=== PATIENT | female | born 2000 | race Caucasian/White ===

== ENCOUNTER 2021-01-26 07:30 | Outpatient (CLI) | payer OTHER, SELFPAY ==
--- NOTE | ~2021-01-26 | US_ITS ---
EXAMINATION: US soft tissue UE LT DATE: 01/26/2021 07:49 INDICATION: Localized swelling, mass or lump at the anterior base of the left third digit TECHNIQUE: Multiple grayscale and Doppler ultrasound images of the region of concern at the base of t he left third digit were obtained. COMPARISON: Radiographs dated 01/17/2021 FINDINGS: There is a 4 x 3 x 2 mm anechoic ganglion cyst along the superficial margin of the flexor tendon at t he region of concern at the base of the left third digit. Subtle corresponding ovoid density can be s een a couple millimeter deep to the skin surface in the soft tissues palmar to the proximal third of the left third proximal phalanx on the prior lateral radiograph. IMPRESSION: 1. 4 x 3 x 2 mm anechoic likely ganglion cyst along the superficial margin of the flexor tendon at th e base of the left third digit. Reviewed, dictated and finalized at location A. IMPRESSION: 1. 4 x 3 x 2 mm anechoic likely ganglion cyst along the superficial margin of t he flexor tendon at the base of the left third digit.
== END 2021-01-26 07:31 | disposition home or self-care (01) ==
LOC: ANHIMG 07:34
PROVIDERS: PCP Family Medicine; Visit Provider Orthopaedic Surgery
DX: R22.32 Localized swelling, mass and lump, left upper limb (principal)
CPT/HCPCS: 76882

== ENCOUNTER 2021-02-06 09:37 | Outpatient (CLI) | payer OTHER, SELFPAY ==
--- NOTE | ~2021-02-06 | NM_ITS ---
EXAMINATION: NM hepatobiliary wo pharm DATE: 02/06/2021 13:32 INDICATION: Epigastric pain COMPARISON: CT abdomen and pelvis dated 05/13/2017 TECHNIQUE: 5 mCi Tc-99m mebrofenin (Choletec) was administered intravenously. Scintigraphic images o f the abdomen were obtained for one hour. At the 1 hour time point, the patient drank 8 oz Ensure, an d imaging was continued for 60 minutes. Gallbladder ejection fraction was calculated by the technolog ist. FINDINGS: There is normal clearance of radiotracer from the blood pool. There is homogeneous tracer u ptake by the liver. Activity progresses to the bowel and gallbladder. The gallbladder ejection fract ion (GBEF) is 35%. Note that with this technique, normal GBEF >= 33%. IMPRESSION: 1. Normal hepatobiliary scan. Reviewed, dictated and finalized at location A.
== END 2021-02-06 09:38 | disposition home or self-care (01) ==
PROVIDERS: PCP Family Medicine; Visit Provider Family Medicine
DX: R10.13 Epigastric pain (principal); R11.0 Nausea; R14.2 Eructation
CPT/HCPCS: 78226; A9537

== ENCOUNTER 2021-08-22 00:34 | Day surgery (SDC) | payer OTHER, SELFPAY ==
[2021-08-05 14:45] VITALS: BMI 26.6
[2021-08-22 09:49] VITALS: BP 97/83; PULSE 79; RESP 18; TEMP 36.1; O2SAT 100
--- NOTE | 2021-08-22 10:07 | PM.HPGS ---
History of Present Illness History of Present Illness Consent: Risks, benefits, and alternatives have been discussed and questions answered. Patient agrees to proceed with procedure. Chief complaint: nausea, epigastric pain Narrative: Eveline Gutierrez is a 20 year old female Who has been suffering from epigastric pain and nausea. Taking omeprazole helps. In fact if she stops taking it for few days her symptoms return. She has had an abdominal ultrasound earlier this year which was negative. Also HIDA scan was normal. Review of Systems Review of Systems: All systems reviewed & are unremarkable except as noted in HPI and below PMFSH Past Medical History Medical History BMI 26.0-26.9,adult BMI 28.0-28.9,adult Epigastric abdominal pain Ganglion, left hand Left third digit flexor tendon sheath Family History Family History Grandparent Hypertension Mother Hypertension Father Diabetes mellitus Sibling No problems noted. Other Cerebrovascular accident Family history of coronary artery disease Social History Social History Smoking status: Never smoker Second hand tobacco smoke exposure: No Alcohol intake: never Substance use: never Substance use type: marijuana Living arrangements: with family Gender identity (if verbalized by the patient): Female Spiritual care concerns: No Meds Home Medications and Allergies Home Medications Medication Instructions Recorded Confirmed Type dextroamphetamine-amphetamine ER 20 mg PO DAILY 01/30/21 07/10/21 History 20 mg 24hr capsule,extend release desvenlafaxine succinate 50 mg 50 mg PO tablet 03/13/21 07/10/21 History tablet,extended release 24 hr aluminum chloride 20 % topical 1 applic TOPICAL 2XW PRN #60 ml 03/25/21 07/10/21 Rx solution omeprazole 20 mg capsule,delayed 20 mg PO BID #60 cap 06/27/21 07/10/21 Rx release buspirone 5 mg tablet 10 mg PO TID tablet 07/10/21 07/10/21 History escitalopram oxalate 10 mg tablet 20 mg PO DAILY tablet 07/10/21 07/10/21 History Allergies Allergy/AdvReac Type Severity Reaction Status Date / Time No Known Allergies Allergy Verified 08/22/21 09:48 Vital Signs Vital Signs - 24 hr 08/22/21 09:49 Temperature 36.1 C L Pulse Rate 79 Respiratory Rate 18 Blood Pressure 97/83 L Pulse Oximetry 100 Exam Const: General: alert Orientation/consciousness: patient oriented x3 Resp: Auscultation: clear to auscultation bilaterally Cardio: Rhythm: regular rhythm GI: GI Palp: Yes Soft to palpation and No Tenderness to palpation present (GI) Neuro: General: patient oriented x3 Assessment and Plan Assessment and plan (1) Upper abdominal pain: Code(s): R10.10 - Upper abdominal pain, unspecified Status: Acute Assessment and Plan: EGD with possible biopsy or dilatation or cautery.
[2021-08-22] MEDS: LACTATED RINGERS 1,000 ML 150 ML IV CONT (10:11)
[2021-08-22] MEDS: BENZOCAINE (*SP) 60 ML SPRAY CAN (HURRICAINE) 1 SPRAY MUCOUS MEM (10:46)
[2021-08-22 10:56] VITALS: BP 80/35; PULSE 77; RESP 17; O2SAT 99
--- NOTE | 2021-08-22 10:57 | P.PNAN_ITS ---
Anes - Initial Pre Proc Eval Procedure: Operation Date: 08/22/21 11:00 Proposed Procedures p Esophagogastroduodenoscopy - Alex Cross MD Date/Time: 08/22/21 10:57 Surgeon: Alex Cross MD Pre Op Diagnosis: nausea, epigastric pain Patient Data Age: 20 Gender: F Height: 1.63 m Weight: 73.1 kg Last Vital Signs Temp 97 F L 08/22/21 09:49 Pulse 79 08/22/21 09:49 Resp 18 08/22/21 09:49 BP 97/83 L 08/22/21 09:49 Pulse Ox 100 08/22/21 09:49 Allergies Allergy/AdvReac Type Severity Reaction Status Date / Time No Known Allergies Allergy Verified 08/22/21 09:48 Home Medications Medication Instructions Recorded Confirmed Type dextroamphetamine-amphetamine ER 20 mg PO DAILY 01/30/21 07/10/21 History 20 mg 24hr capsule,extend release desvenlafaxine succinate 50 mg 50 mg PO tablet 03/13/21 07/10/21 History tablet,extended release 24 hr aluminum chloride 20 % topical 1 applic TOPICAL 2XW PRN #60 ml 03/25/21 07/10/21 Rx solution omeprazole 20 mg capsule,delayed 20 mg PO BID #60 cap 06/27/21 07/10/21 Rx release buspirone 5 mg tablet 10 mg PO TID tablet 07/10/21 07/10/21 History escitalopram oxalate 10 mg tablet 20 mg PO DAILY tablet 07/10/21 07/10/21 History Patient hx anesthesia problems: none Family hx anesthesia problems: none Results Review: All pre-operative results and documents have been reviewed as part of the pre-operative evaluation. [facility] Past Medical History Medical History BMI 26.0-26.9,adult BMI 28.0-28.9,adult Epigastric abdominal pain Ganglion, left hand Left third digit flexor tendon sheath Family History Family History Grandparent Hypertension Mother Hypertension Father Diabetes mellitus Sibling No problems noted. Other Cerebrovascular accident Family history of coronary artery disease Social History Social History Smoking status: Never smoker Second hand tobacco smoke exposure: No Alcohol intake: never Substance use: never Substance use type: marijuana Living arrangements: with family Gender identity (if verbalized by the patient): Female Spiritual care concerns: No Anes - Eval Final PreProcedure Day of Procedure 08/22/21 10:57 Patient weight: overweight Heart: regular rate and rhythm Lungs: clear to auscultation Airway: Mallampati scale class II Neurological: alert and oriented Last oral intake: >/= 8 hours ASA classification: II Emergent: no Anesthetic plan: proceed Anesthesia type and monitoring: general GIVS and standard monitoring Results Review: All pre-operative results and documents have been reviewed as part of the pre-operative evaluation. Informed Consent: The patient's anesthetic plan and its attendant risks and benefits were discussed with the patient/family/POA. Questions were solicited and answers provided to the satisfaction of the patient/family/POA.
[2021-08-22 11:06] VITALS: BP 86/43; PULSE 74; RESP 17; O2SAT 99
[2021-08-22 11:16] VITALS: BP 94/50; PULSE 63; RESP 15; O2SAT 99
== END 2021-08-22 11:39 | disposition home or self-care (01) ==
PROVIDERS: PCP Family Medicine; Visit Provider Internal Medicine Gastroenterology
PROC: 0DJ08ZZ Inspection of Upper Intestinal Tract, Via Natural or Artificial Opening Endoscopic (ICD-10-PCS; CPT 43235; principal; 2021-08-22 11:00)
DX: K21.9 Gastro-esophageal reflux disease without esophagitis (principal)
CPT/HCPCS: 43239; 87081; 88305; J2001; J2704; J7120

== ENCOUNTER 2023-03-02 15:04 | Emergency (ER) | payer OTHER, SELFPAY ==
--- NOTE | ~2023-03-02 | XR_ITS ---
EXAMINATION: XR knee RT 3V DATE: 03/02/2023 16:05 INDICATION: Right knee pain. TECHNIQUE: 3 views of right knee including standing views were obtained. COMPARISON: Right knee radiographs 05/17/2019 FINDINGS: Bone alignment is normal. No fracture. Joint spaces are well maintained. There is no knee j oint effusion. IMPRESSION: 1. Normal right knee. Reviewed, dictated and finalized at location A. IMPRESSION: 1. Normal right knee.
[2023-03-02 15:18] VITALS: BP 113/60; PULSE 84; RESP 16; TEMP 36.9; O2SAT 100
--- NOTE | 2023-03-02 15:37 | ED.GENADULT ---
HPI - General Adult General Chief complaint: Extremity Injury, Lower Stated complaint: Excessive right knee pain Time Seen by Provider: 03/02/23 15:38 Source: patient, RN notes reviewed and old records reviewed Mode of arrival: ambulatory Limitations: no limitations History of Present Illness HPI narrative: 22year old female accompanied by family member presents to express care with complaints of 5 day history of pain to her right knee with no known injury. Patient reports pain to the anterior right knee below knee cap especially to medial aspect. Patient reports that she had previous injury to her right knee in past with fluid on knee.Patient has taken some Aleve and Ibuprofen but not on routine basis. Patient reports that right knee pain is constant soreness rates her pain 6/10., hurts with and without movement. MD complaint: right knee pain no recent injury Onset (ago): day(s) (5) Location: lower extremity (right knee) Radiation: non-radiation Severity scale (1-10): 6 Quality: other (soreness stated) Treatments prior to arrival: NSAID Related Data Home Medications Medication Instructions Recorded Confirmed dextroamphetamine-amphetamine ER 25 mg PO DAILY 08/21/22 03/02/23 30 mg 24hr capsule,extend release (Adderall XR) Allergies Allergy/AdvReac Type Severity Reaction Status Date / Time No Known Allergies Allergy Verified 03/02/23 15:13 Review of Systems Review of Systems: CONSTITUTIONAL: Denies fever, chills, or sweats. EYES: Denies visual changes, redness, or discharge. ENT: Denies rhinorrhea, congestion, sore throat, or otalgia. CARDIOVASCULAR: Denies chest pain, palpitations, or edema. RESPIRATORY: Denies cough or dyspnea. GASTROINTESTINAL: Denies abdominal pain, nausea, vomiting, or diarrhea. GENITOURINARY: Denies dysuria or hematuria. SKIN: Denies rash or itching. MUSCULOSKELETAL: Denies back pain, positive for right knee pain, or myalgia. NEUROLOGIC: Denies headache, numbness, or weakness. PSYCHIATRIC: Denies anxiety or depression. All systems reviewed & are unremarkable except as noted in HPI and below PMFSH Past Medical History Medical History (Updated 03/03/23 @ 15:33 by Natalie Méndez NP) ADHD (attention deficit hyperactivity disorder) Anxiety BMI 26.0-26.9,adult BMI 27.0-27.9,adult BMI 28.0-28.9,adult Depression Epigastric abdominal pain Ganglion, left hand Left third digit flexor tendon sheath Generalized headaches Family History Family History Grandparent Hypertension Mother Hypertension Hyperlipidemia Anxiety Father Diabetes mellitus Dermatomyositis Sibling ADHD Anxiety Other Cerebrovascular accident Family history of coronary artery disease Social History Social History Smoking status: Never smoker Second hand tobacco smoke exposure: No Alcohol intake: never Substance use: never Substance use type: does not use Living arrangements: with family Occupation/Education: student Additional occupation/education comments: [employer] Gender identity (if verbalized by the patient): Female Spiritual care concerns: No Comments At time of signature, agree with nursing past medical, surgical, social and family history. There is no relevant family history pertinent to the presenting complaint Exam Narrative: GENERAL: Well-appearing, well-nourished, and in no acute distress. HEAD: Normocephalic, atraumatic. EYES: PERRLA and EOMI. ENT: Nares clear, no rhinorrhea or epistaxis. Mucous membranes moist. NECK: Supple. no lymphadenopathy CHEST: Clear to auscultation. No respiratory distress.SAO2 100% on room air HEART: Regular rate and rhythm. No murmur heard. Normal peripheral pulses. ABDOMEN: Soft, nontender, nondistended, normal active bowel sounds. EXTREMITIES: Normal range of motion. No edema.noted pain to anterior tight knee
== END 2023-03-02 16:29 | disposition home or self-care (01) ==
PROVIDERS: Emergency Provider Registered Nurse; PCP Family Medicine
DX: M25.561 Pain in right knee (principal); F90.9 Attention-deficit hyperactivity disorder, unspecified type
CPT/HCPCS: 73562; 99213; G0463

== ENCOUNTER 2023-03-07 16:19 | Emergency (ER) | payer OTHER, SELFPAY ==
--- NOTE | 2023-03-07 16:26 | ED.EXTPRO ---
HPI - Extremity Problem General Chief complaint: Extremity Problem,Nontraumatic Stated complaint: rt foot is numb Time Seen by Provider: 03/07/23 16:44 Source: patient and RN notes reviewed Mode of arrival: ambulatory Limitations: no limitations History of Present Illness HPI Narrative: 22-year-old female presents with concern for worsening knee pain leading to numbness in her toes. Reports she was seen 5 days ago for knee pain. She had a normal x-ray. She reports since then she has been using ice regularly, using a compression sleeve, elevating it, alternate Tylenol and ibuprofen. MD Complaint: extremity pain Related Data Home Medications Medication Instructions Recorded Confirmed dextroamphetamine-amphetamine ER 25 mg PO DAILY 08/21/22 03/07/23 30 mg 24hr capsule,extend release (Adderall XR) Allergies Allergy/AdvReac Type Severity Reaction Status Date / Time No Known Allergies Allergy Verified 03/07/23 16:23 Review of Systems Review of Systems: CONSTITUTIONAL: Denies malaise, chills, sweats, or fever. SKIN: Denies rash or itching, open skin, laceration, abrasion, redness, warmth, swelling. MUSCULOSKELETAL: Reports right knee pain, numbness in her right toes NEUROLOGIC: Denies weakness All systems reviewed & are unremarkable except as noted in HPI and below PMFSH Past Medical History Medical History (Updated 03/07/23 @ 16:57 by Alondra Lynne NP) ADHD (attention deficit hyperactivity disorder) Anxiety BMI 26.0-26.9,adult BMI 27.0-27.9,adult BMI 28.0-28.9,adult Depression Epigastric abdominal pain Ganglion, left hand Left third digit flexor tendon sheath Generalized headaches Family History Family History Grandparent Hypertension Mother Hypertension Hyperlipidemia Anxiety Father Diabetes mellitus Dermatomyositis Sibling ADHD Anxiety Other Cerebrovascular accident Family history of coronary artery disease Social History Social History Smoking status: Never smoker Second hand tobacco smoke exposure: No Alcohol intake: never Substance use: never Substance use type: does not use Living arrangements: with family Occupation/Education: student Additional occupation/education comments: [employer] Gender identity (if verbalized by the patient): Female Spiritual care concerns: No Comments At time of signature, agree with nursing past medical, surgical, social and family history. There is no relevant family history pertinent to the presenting complaint Exam Narrative: GENERAL: Well-appearing, well-nourished, and in no acute distress. HEAD: Normocephalic, atraumatic. EYES: PERRLA, conjunctivae clear NECK: Supple. CHEST: Speaks in full sentences. No respiratory distress. HEART: Regular rate and rhythm. Normal and equal peripheral pulses. EXTREMITIES: Right lower extremity has grossly normal strength and sensation, grossly normal range of motion. No edema or ecchymosis. 5/5 strength with digit flexion and extension. Normal sensation with sensitivity to light touch and pain. Anterior knee tenderness. No open wounds, no skin tenting, no devitalized tissue or atrophy, no trophic changes, no obvious deformity, alignment normal, nearby joints and structures intact. Distal pulses palpable and equal bilaterally, skin warm, dry, pink. Capillary refill less than 3 seconds. SKIN: Warm, dry, no rash. NEURO: Alert and oriented x3. PSYCH: Normal mood and affect Course Course Emergency Course: Patient was advised to use crutches to not bear weight on the extremity and follow up with Orthopedics, as well as continuing the intervention she has been doing Patient is aware of diagnosis, understands and agrees to treatment plan. Anticipatory guidance given. Patient agrees to follow-up as directed and is aware of reasons to seek care at the emergency
[2023-03-07 16:28] VITALS: BP 116/77; PULSE 90; RESP 16; TEMP 36.7; O2SAT 100
== END 2023-03-07 16:55 | disposition home or self-care (01) ==
PROVIDERS: Emergency Provider Nurse Practitioner; PCP Family Medicine
DX: M25.561 Pain in right knee (principal); F90.9 Attention-deficit hyperactivity disorder, unspecified type
CPT/HCPCS: 99212; G0463

== ENCOUNTER 2023-08-17 08:35 | Emergency (ER) | payer OTHER, SELFPAY ==
--- NOTE | ~2023-08-17 | XR_ITS ---
EXAMINATION: XR knee RT 3V DATE: 08/17/2023 09:02 INDICATION: Right knee pain. TECHNIQUE: 3 views of right knee were obtained. COMPARISON: Right knee radiographs 03/02/2023 FINDINGS: Bone alignment is normal. No fracture. Joint spaces are well maintained. There is no knee j oint effusion. IMPRESSION: 1. Normal right knee. Reviewed, dictated and finalized at location A. [employer] IMPRESSION: 1. Normal right knee.
[2023-08-17 08:38] VITALS: BP 142/85; PULSE 90; RESP 16; TEMP 36.7; O2SAT 100
[2023-08-17 08:53] VITALS: BP 127/80; PULSE 92; RESP 15; O2SAT 100
--- NOTE | 2023-08-17 08:54 | ED.GENADULT ---
HPI - General Adult General Chief complaint: Extremity Injury, Lower Stated complaint: right knee pain Time Seen by Provider: 08/17/23 08:40 History of Present Illness HPI narrative: 22-year-old female presenting to the emergency department for evaluation right knee pain. Patient had a steroid injection by Dr. Chinchilla and states today she has had increased pain. Patient denies any falls or injuries. Patient states she does have some pain in her right hip that does radiate down to her knee but also suspect she has some pain in the knee that radiates up to the hip. Related Data Home Medications Medication Instructions Recorded Confirmed dextroamphetamine-amphetamine ER 25 mg PO DAILY 08/21/22 08/13/23 30 mg 24hr capsule,extend release (Adderall XR) fluoxetine 20 mg capsule 20 mg PO DAILY 08/13/23 08/13/23 omeprazole 40 mg capsule,delayed 40 mg PO DAILY 08/13/23 08/13/23 release Allergies Allergy/AdvReac Type Severity Reaction Status Date / Time No Known Allergies Allergy Verified 08/17/23 08:55 Review of Systems Review of Systems: All systems reviewed & are unremarkable except as noted in HPI and below PMFSH Past Medical History Medical History ADHD (attention deficit hyperactivity disorder) Anxiety BMI 26.0-26.9,adult BMI 27.0-27.9,adult BMI 28.0-28.9,adult Depression Epigastric abdominal pain Ganglion, left hand Left third digit flexor tendon sheath Generalized headaches Surgical History Surgical History History of hand surgery right hand fx Family History Family History Grandparent Hypertension Mother Hypertension Hyperlipidemia Anxiety Father Diabetes mellitus Dermatomyositis Sibling ADHD Anxiety Other Cerebrovascular accident Family history of coronary artery disease Social History Social History Smoking status: Never smoker Second hand tobacco smoke exposure: No Alcohol intake: never Substance use: never Substance use type: does not use Do You Feel Safe in your Home?: Yes Lack of Transportation: No Lack of Food: Never True Current Housing: I Have Housing Concerned About Future Housing: No Difficulty Paying Gas/Electric Bills: No Difficulty Paying for Meds: No Currently Unemployed: No Education: Associate Degree Difficulty w/ Childcare or Family Care: No Living arrangements: with family Occupation/Education: student 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 HEAD: normocephalic, atraumatic. EYES: PERRLA/EOMI, conjunctivae clear. NOSE: Normal no drainage EARS:TMS clear with good light reflex. THROAT: Pharynx clear, no exudate. NECK: Supple. No adenopathy, no masses. RESPIRATORY: Airway patent, respirations nonlabored. Clear to auscultation bilaterally, no rales, rhonchi, wheezing. CARDIOVASCULAR: Regular rate and rhythm without murmurs rubs or gallops. ABDOMINAL: Soft, nontender, nondistended, normal bowel sounds MUSCULOSKELETAL: Full range of motion of the right knee, no significant effusion and no overlying erythema, well-appearing injection site NEURO: Alert. Cranial nerves II through XII intact. Grossly intact SKIN: Warm, dry. Normal Color Course Course Emergency Course: 22-year-old female presenting emergency department for evaluation of right-sided knee pain. Low concern for septic arthritis at this point, patient has full range of motion of the knee with no significant effusion no overlying erythema or warmth. X-ray showed no acute fracture or dislocation. Patient was provided Flexeril for muscle spasm and a
[2023-08-17] MEDS: CYCLOBENZAPRINE HCL 10 MG TABLET PO (08:59)
[2023-08-17] MEDS: HYDROcodone/acetaminophen (*CRX) 5-325 MG TABLET 1 TAB PO (09:00)
[2023-08-17 09:38] VITALS: BP 125/69; PULSE 90; RESP 18; O2SAT 100
== END 2023-08-17 09:40 | disposition home or self-care (01) ==
PROVIDERS: Emergency Provider Emergency Medicine; PCP Family Medicine
DX: M25.561 Pain in right knee (principal); F90.9 Attention-deficit hyperactivity disorder, unspecified type; F41.9 Anxiety disorder, unspecified
CPT/HCPCS: 73562; 99283; A9270

== ENCOUNTER 2024-04-14 13:29 | Outpatient (CLI) | payer OTHER, SELFPAY ==
--- NOTE | 2024-04-14 13:31 | ECHO_ITS ---
Patient Info Name: Eveline Gutierrez Age: 23 years : 2000 Gender: Female Ht: 63 in Wt: 170 lbs BSA: 1.88 m2 HR: 85 bpm BP: 113 / 74 mmHg Technical Quality: Good Exam Date: 04/14/2024 1:40 PM Exam Location: Echo Lab Patient Status: Outpatient Admit Date: 04/14/2024 Staff Ordering Physician: Marie Carcamo PAC Decorator Consultant: Sohpia Muñoz RDCS Attending Provider: Marie Carcamo Referring Physician: Carlos Alberto SALAS; Exam Type: CA echo doppler color flow Study Info Indications R55 - Syncope and collapse Complete two-dimensional, color flow and Doppler transthoracic echocardiogram is performed. Strain analysis performed. Summary 1. Complete two-dimensional, color flow and Doppler transthoracic echocardiogram is performed. 2. Left ventricular chamber dimension is normal. 3. Left ventricular systolic function is normal, estimated at 65-70%. 4. The left ventricular diastolic function is normal. 5. E/e' 4 is not elevated. 6. Global longitudinal strain is normal at -17.4%. 7. There is trace aortic valve regurgitation. 8. There is trace pulmonic regurgitation. Left Ventricle E/e' 4 is not elevated. Global longitudinal strain is normal at -17.4%. Left ventricular chamber dimension is normal. Left ventricular systolic function is normal, estimated at 65-70%. The left ventricular diastolic function is normal. Right Ventricle Right ventricular chamber dimension is normal. Right ventricular systolic function is normal. Left Atria Left atrial chamber dimension is normal. Right Atria Right atrial chamber dimension is normal. Aortic Valve The aortic valve is trileaflet. There is no aortic valve stenosis. There is trace aortic valve regurgitation. Pulmonic Valve There is trace pulmonic regurgitation. Mitral Valve There is no mitral valve stenosis. Tricuspid Valve There is no tricuspid valve regurgitation. Pericardium/Pleural There is no pericardial effusion. Inferior Vena Cava Normal inferior vena cava with >50% collapse upon inspiration consistent with normal right atrial pressure, 5 mmHg. Aorta The aortic root size at the sinus of Valsalva is normal. Left Ventricular Outflow Tract Name Value Normal LVOT 2D LVOT Diameter 1.96 cm LVOT Doppler LVOT Peak Gradient 4 mmHg LVOT Mean Gradient 2 mmHg LVOT VTI 18.22 cm LVOT VTI/AV VTI Ratio 0.82 LVOT Stroke Volume 54.74 ml LVOT CO 4.55 l/min LVOT CI 2.42 L/min/m2 Pulmonic Valve Name Value Normal RVOT Doppler RVOT Peak Gradient 5 mmHg PV Doppler PV Peak Gradient 6 mmHg Mitral Valve Name
== END 2024-04-14 13:30 | disposition home or self-care (01) ==
PROVIDERS: PCP Family Medicine; Visit Provider Physician Assistant Medical
DX: R55 Syncope and collapse (principal); R00.0 Tachycardia, unspecified; R01.1 Cardiac murmur, unspecified
CPT/HCPCS: 93306